=== PATIENT | male | born 1955 | race Caucasian/White ===

== ENCOUNTER 2019-12-12 21:37 | Emergency (ER) | payer OTHER ==
[2019-12-12] MEDS ORDERED: Meclizine HCl 25 MG TAB ONE (22:14)
--- NOTE | 2019-12-12 22:39 | CT ---
CT BRAIN NONCONTRAST: DATE: 12/12/2019 HISTORY: 64-year-old male with vertigo FINDINGS: There is no evidence of acute intra-axial or extra-axial hemorrhage. There is no midline shift or any other mass effect. There is no extra-axial fluid collection. There is no evidence of obstructive hydrocephalus. Calvarium is intact. IMPRESSION: No acute intracranial findings.
[2019-12-12 22:44] LABS: #Basophils 0.1 thou/uL (0.0-0.2); #Eosinphils 0.2 thou/uL (0.0-0.7); #Lymphocytes 2.6 thou/uL (1.20-3.40); #Monocytes 0.7 thou/uL (0.11-0.59); #Neutrophils 3.7 thou/uL (1.40-6.50); %Eosinophils 3.1 % (0.0-10.0); %Lymphocytes 35.7 % (21.0-51.0); %Monocytes 9.1 % (0.0-10.0); %Neutrophils 51.2 % (42.0-75.0); Hemoglobin 14.4 g/dL (14.0-18.0); Mean Corpuscular HGB CONC 34.2 g/dL (32.0-36.0); Mean Corpuscular Hemoglobin 30.9 pg (27.0-31.0); Mean Corpuscular Volume 90.3 fL (78.0-98.0); Mean Platelet Volume 7.8 fL (7.4-10.4); Platelet Count 275 thou/uL (130-400); Red Blood Cell (RBC) Count 4.65 mill/uL (4.70-6.10); White Blood Cell (WBC) Count 7.3 thou/uL (4.8-10.8)
[2019-12-12 22:48] LABS: ALT (SGPT) 35 U/L (8-55); AST (SGOT) 21 U/L (5-34); Alkaline Phosphatase 75 U/L (40-110); Anion Gap 13 mmol/L (10-20); BUN (Urea Nitrogen) 14 mg/dL (8.4-25.7); Bilirubin, Total 0.7 mg/dL (0.2-1.2); Calc. Creatinine Clearance 0 mL/min (70-130); Calcium 8.8 mg/dL (7.8-10.44); Carbon Dioxide 23 mmol/L (23-31); Chloride 106 mmol/L (98-107); Estimated GFR-MDRD 62; Globulin 2.9 g/dL (2.4-3.5); Glucose 105 mg/dL (80-115); Magnesium 1.9 mg/dL (1.6-2.6); Protein, Total 6.9 g/dL (5.8-8.1); Sodium 138 mmol/L (136-145)
--- NOTE | 2019-12-16 16:36 | EKG ---
Test Reason : Blood Pressure : / mmHG Vent. Rate : 070 BPM Atrial Rate : 070 BPM P-R Int : 156 ms QRS Dur : 102 ms QT Int : 404 ms P-R-T Axes : 053 030 038 degrees QTc Int : 436 ms Normal sinus rhythm Normal ECG Confirmed by SERINA JACOME ([id number]), senior editor WILLIS SALCEDO ([id number]) on 12/16/2019 4:35:47 PM Referred By: Confirmed By:SERINA JACOME
== END 2019-12-12 23:29 | disposition home or self-care (01) ==
LOC: ERS 21:37
DX: H81.10 Benign paroxysmal vertigo, unspecified ear (principal); E78.5 Hyperlipidemia, unspecified; E78.00 Pure hypercholesterolemia, unspecified; I10 Essential (primary) hypertension; Z79.899 Other long term (current) drug therapy
CPT/HCPCS: 36415; 70450; 80053; 83735; 84484; 85025; 93005

== ENCOUNTER 2021-08-17 21:28 | Inpatient (IN) | payer OTHER ==
[2021-08-17] MEDS ORDERED: Cefepime 2 GM VIAL ONE (22:34)
[2021-08-17] MEDS ORDERED: Ondansetron PF 4 MG/2 ML Vial ONE (22:34)
[2021-08-17] MEDS ORDERED: Fentanyl 100 MCG/2 ML VIAL ONE (22:34)
[2021-08-17 22:48] LABS: #Basophils 0.1 thou/uL (0.0-0.2); #Eosinphils 0.3 thou/uL (0.0-0.7); #Lymphocytes 2.5 thou/uL (1.20-3.40); #Neutrophils 4.4 thou/uL (1.40-6.50); %Basophils 0.9 % (0.0-1.0); %Eosinophils 3.1 % (0.0-10.0); %Lymphocytes 30.4 % (21.0-51.0); %Monocytes 12.3 % (0.0-10.0); %Neutrophils 53.3 % (42.0-75.0); Hemoglobin 14.4 g/dL (14.0-18.0); Mean Corpuscular Hemoglobin 32.7 pg (27.0-31.0); Mean Corpuscular Volume 93.4 fL (78.0-98.0); Mean Platelet Volume 6.8 fL (7.4-10.4); Platelet Count 303 thou/uL (130-400); RBC Distribution Width 11.6 % (11.5-14.5); White Blood Cell (WBC) Count 8.2 thou/uL (4.8-10.8)
[2021-08-17 23:09] LABS: CRP (Inflammatory) 3.33 mg/dL (= or < 0.5)
[2021-08-17 23:10] LABS: ALT (SGPT) 55 U/L (8-55); AST (SGOT) 26 U/L (5-34); Albumin 3.8 g/dL (3.4-4.8); Alkaline Phosphatase 65 U/L (40-110); Anion Gap 13 mmol/L (10-20); BUN (Urea Nitrogen) 17 mg/dL (8.4-25.7); Bilirubin, Total 0.7 mg/dL (0.2-1.2); Calc. Creatinine Clearance 0 mL/min (70-130); Calcium 9.1 mg/dL (7.8-10.44); Carbon Dioxide 26 mmol/L (23-31); Chloride 105 mmol/L (98-107); Globulin 2.9 g/dL (2.4-3.5); Glucose 94 mg/dL (80-115); Potassium 4.5 mmol/L (3.5-5.1); Protein, Total 6.7 g/dL (5.8-8.1); Sodium 139 mmol/L (136-145)
[2021-08-17] MEDS ORDERED: Ondansetron ODT 4 MG TAB SL PRN (23:45)
[2021-08-17] MEDS ORDERED: Ondansetron PF 4 MG/2 ML Vial IVP PRN (23:45)
[2021-08-17 23:55] LABS: INR-International Normal Ratio 1.1
[2021-08-17 23:56] LABS: PTT 31.4 sec (22.9-36.1)
[2021-08-18] MEDS ORDERED: Enoxaparin Sodium 100 MG/ML SYRINGE ONE ×2 (00:07→00:09)
[2021-08-18] MEDS ORDERED: Vancomycin 1 GM in Premix Bag 1 BAG IVPB SCH (01:00)
[2021-08-18 01:12] VITALS: BMI 28.7
[2021-08-18] MEDS ORDERED: Acetaminophen 325 MG TAB PO PRN (04:05)
[2021-08-18] MEDS ORDERED: hydrALAZINE 20 MG/ML VIAL SLOW IVP PRN (06:32)
[2021-08-18] MEDS: traMADol HCl 50 MG TAB PO PRN ×2 (06:36→13:52)
[2021-08-18] MEDS ORDERED: Lisinopril 10 MG TAB PO SCH ×2 (09:00→13:45)
[2021-08-18] MEDS ORDERED: Enoxaparin Sodium 100 MG/ML SYRINGE SC SCH (09:00)
[2021-08-18] MEDS: Vancomycin 1.5 GRAM/300 ML BAG 1.5 GM in Premix Bag 1 BAG IVPB SCH ×2 (11:25→22:42)
[2021-08-18] MEDS ORDERED: cefTRIAXone\\ROCEPHIN 1 GM in Sodium Chloride 0.9% 100 ML IVPB SCH (12:00)
[2021-08-18 13:37] LABS: SARS-CoV-2 PCR by NAA Not Detected (NotDetected)
[2021-08-18] MEDS: Enoxaparin Sodium 100 MG/ML SYRINGE SC SCH (21:06)
[2021-08-19 07:38] LABS: #Basophils 0.1 thou/uL (0.0-0.2); #Eosinphils 0.4 thou/uL (0.0-0.7); #Lymphocytes 2.6 thou/uL (1.20-3.40); #Monocytes 0.8 thou/uL (0.11-0.59); #Neutrophils 2.7 thou/uL (1.40-6.50); %Basophils 0.8 % (0.0-1.0); %Eosinophils 6.5 % (0.0-10.0); %Lymphocytes 39.4 % (21.0-51.0); %Monocytes 12.2 % (0.0-10.0); Hemoglobin 13.9 g/dL (14.0-18.0); Mean Corpuscular HGB CONC 33.4 g/dL (32.0-36.0); Mean Corpuscular Hemoglobin 31.8 pg (27.0-31.0); Mean Corpuscular Volume 95.2 fL (78.0-98.0); Mean Platelet Volume 6.9 fL (7.4-10.4); Platelet Count 289 thou/uL (130-400); RBC Distribution Width 11.7 % (11.5-14.5); Red Blood Cell (RBC) Count 4.38 mill/uL (4.70-6.10); White Blood Cell (WBC) Count 6.5 thou/uL (4.8-10.8)
[2021-08-19 08:02] LABS: Anion Gap 12 mmol/L (10-20); BUN (Urea Nitrogen) 12 mg/dL (8.4-25.7); Calc. Creatinine Clearance 103 mL/min (70-130); Calcium 9.1 mg/dL (7.8-10.44); Carbon Dioxide 25 mmol/L (23-31); Cardiac Risk 5.2 (Less than 4.5); Chloride 105 mmol/L (98-107); Cholesterol 157 mg/dl (< 200 Desired); Glucose 93 mg/dL (80-115); HDL Cholesterol 30 mg/dL (>60 Neg Risk); LDL Cholesterol, Calculated 110 mg/dL; Potassium 4.2 mmol/L (3.5-5.1); Sodium 138 mmol/L (136-145); Triglycerides 87 mg/dL (Less than 150)
[2021-08-19] MEDS ORDERED: Lisinopril 20 MG TAB PO SCH (09:00)
[2021-08-19] MEDS: Enoxaparin Sodium 100 MG/ML SYRINGE SC SCH (09:09)
[2021-08-19 10:56] LABS: Vancomycin, Trough 8.8 ug/mL
[2021-08-19 11:31] VITALS: BP 140/88; TEMP 98.2
[2021-08-19] MEDS: Vancomycin 1.5 GRAM/300 ML BAG 1.5 GM in Premix Bag 1 BAG IVPB SCH (12:10)
[2021-08-19] MEDS ORDERED: Cephalexin 250 MG CAP PO SCH (18:00)
[2021-08-19] MEDS ORDERED: Ciprofloxacin 500 MG TAB PO SCH (20:00)
== END 2021-08-19 13:58 | disposition home or self-care (01) | DRG 300 ==
LOC: ERS 21:28 → T4-A 23:37
PROVIDERS: ADMIT Internal Medicine; ATTEND Emergency Medicine
DX: I82.432 Acute embolism and thrombosis of left popliteal vein (principal); L03.116 Cellulitis of left lower limb; I10 Essential (primary) hypertension; E78.5 Hyperlipidemia, unspecified; Z87.891 Personal history of nicotine dependence; E78.00 Pure hypercholesterolemia, unspecified; Z20.822 Contact with and (suspected) exposure to COVID-19
CPT/HCPCS: 36415; 80048; 80053; 80061; 80202; 82550; 83605; 85025; 85610; 85652; 85730; 86140; 87040; 87070; 87205; J0692; J0696; J0744; J1650; J2405; J3010; J3370; J3490; U0003; U0005

== ENCOUNTER 2024-01-31 13:32 | Outpatient (CLI) | payer OTHER | END 2024-01-31 13:33 | disposition home or self-care (01) | LOC: BICRAD 13:32 | PROVIDERS: ATTEND Podiatrist | DX: M72.2 Plantar fascial fibromatosis (principal); M19.072 Primary osteoarthritis, left ankle and foot; M77.32 Calcaneal spur, left foot ==